=== PATIENT | female | born 1960 | race American Indian/Alaskan Native ===

== ENCOUNTER 2017-06-08 10:10 | Outpatient (CLI) | payer OTHER ==
--- NOTE | 2017-06-08 16:28 | Mammography Report ---
BILATERAL DIGITAL SCREENING MAMMOGRAM with CAD :06/08/17 10:10:00 CLINICAL: Routine screening. COMPARISON:05/26/16 FINDINGS: The breasts are extremely dense, which lowers the sensitivity of mammography. Left upper inner biopsy clip and a more prominent asymmetry of the clip on the MLO view. No architectural distortion or suspicious calcifications.The right breast is negative. IMPRESSION: Left asymmetry requiring additional imaging. BI-RADS CATEGORY: 0--Needs Additional Imaging RECOMMENDATION: Recall for left spot compression views and left breast ultrasound. ACR BI-RADS MAMMOGRAPHIC CODES: 0 = Needs additional imaging evaluation; 1 = Negative; 2 = Benign; 3 = Probably benign; 4 = Suspicious; 5 = Malignant; 6 = Known biopsy-proven malignancy COMMENT: 1. Dense breast tissue, i.e., adenosis, fibrocystic changes, etc., may obscure an underlying neoplasm. 2. Approximately 10% of cancers are not detected with mammography. 3. A negative mammography report should not delay biopsy if a clinically suspicious mass is present. Patient follow-up letters are generated by our [employer] application.
== END 2017-06-08 10:11 | disposition home or self-care (01) ==
LOC: MAMMO 10:10
PROVIDERS: ATTEND Obstetrics & Gynecology
DX: Z12.31 Encounter for screening mammogram for malignant neoplasm of breast (principal)
CPT/HCPCS: 77067

== ENCOUNTER 2017-06-25 07:53 | Outpatient (CLI) | payer OTHER ==
--- NOTE | 2017-06-26 09:19 | Ultrasound Report ---
LEFT DIGITAL DIAGNOSTIC MAMMOGRAM and LEFT BREAST ULTRASOUND: 06/25/17 07:53:00 CLINICAL: Recalled for an enlarging asymmetry at a biopsy clip. COMPARISON:06/08/17 screening FINDINGS: ML and spot compression CC views were performed. Asymmetry persists on the spot view but is not apparent on the lateral view. Ultrasound of the inner left breast was performed and demonstrated a complex irregular predominantly cystic lesion at 10 o'clock 3 cm from the nipple. It measures 1.4 x 0.9 x 1.2 cm and correlates with the mammographic asymmetry. A benign cyst at 10 o'clock 3 cm from the nipple measures 8 mm and a second cyst in the same location measures 6 mm. IMPRESSION: Benign cysts and no suspicious finding. BI-RADS CATEGORY: 2 - - Benign RECOMMENDATION: Routine mammographic screening in one year. ACR BI-RADS MAMMOGRAPHIC CODES: 0 = Needs additional imaging evaluation; 1 = Negative; 2 = Benign; 3 = Probably benign; 4 = Suspicious; 5 = Malignant; 6 = Known biopsy-proven malignancy COMMENT: 1. Dense breast tissue, i.e., adenosis, fibrocystic changes, etc., may obscure an underlying neoplasm. 2. Approximately 10% of cancers are not detected with mammography. 3. A negative mammography report should not delay biopsy if a clinically suspicious mass is present. COMMENT: Patient follow-up letters are generated via our [employer] application.
== END 2017-06-25 07:54 | disposition home or self-care (01) ==
LOC: MAMMO 07:53
PROVIDERS: ATTEND Obstetrics & Gynecology
DX: N60.02 Solitary cyst of left breast (principal)